=== PATIENT | male | born 1990 | race African-American/Black ===

== ENCOUNTER 2022-02-17 15:24 | Emergency (ER) | payer SELFPAY ==
[2022-02-17] MEDS ORDERED: Ketorolac Tromethamine 30 MG/ML VIAL ONE (17:22)
[2022-02-17] MEDS ORDERED: Prochlorperazine 10 MG/2 ML VIAL ONE (17:23)
== END 2022-02-17 18:08 ==
LOC: ERS 15:24
DX: R51.9 Headache, unspecified (principal); F17.210 Nicotine dependence, cigarettes, uncomplicated
CPT/HCPCS: 96374; 96375; J0780; J1885

== ENCOUNTER 2023-12-16 20:50 | Emergency (ER) | payer OTHER, SELFPAY ==
[2023-12-16] MEDS ORDERED: Ketorolac Tromethamine 30 MG (1 mL) VIAL ONE (21:23)
[2023-12-16] MEDS ORDERED: Diazepam 5 MG TAB ONE (21:24)
== END 2023-12-16 21:46 | disposition home or self-care (01) ==
LOC: ERS 20:50
DX: M62.830 Muscle spasm of back (principal); F17.290 Nicotine dependence, other tobacco product, uncomplicated
CPT/HCPCS: 96372; 99283; J1885